=== PATIENT | female | born 1940 | race Caucasian/White ===

== ENCOUNTER 2021-11-20 10:00 | Outpatient (RCR) | payer MEDICARE, MEDICAID, SELFPAY | END 2021-12-16 10:49 | disposition home or self-care (01) | LOC: HO.PT 10:00 | PROVIDERS: Visit Provider Internal Medicine | DX: M25.561 Pain in right knee (principal) | CPT/HCPCS: 97110; 97163 ==

== ENCOUNTER 2022-04-16 10:56 | Outpatient (REF) | payer MEDICARE, MEDICAID, SELFPAY ==
[2022-04-16 11:23] LABS: MANUAL DIFF FLAG NO
[2022-04-16 11:42] LABS: Basophils Percent Auto 0.5 % (0-2); Eosinophils Absolute Auto 0.2 X10*3/uL (0.0-0.4); Eosinophils Percent Auto 3.1 % (0-4); Hematocrit 41.2 % (37.0-47.0); Hemoglobin 13.5 g/dl (12.0-16.0); Imm Gran Abs Auto 0.01 X10*3/uL (0.00-0.03); Imm Gran Pct Auto 0.2 % (0.0-0.4); Lymphocytes Absolute Auto 1.7 X10*3/uL (1.2-4.9); Lymphocytes Percent Auto 26.9 % (20-40); Mean Corpuscular HGB Conc 32.8 g/dl (31.0-35.0); Mean Corpuscular Hemoglobin 28.6 pg (27.0-33.0); Mean Corpuscular Volume 87.3 fL (80.0-98.0); Mean Platelet Volume 9.1 fL (9.4-12.3); Monocytes Absolute Auto 0.6 X10*3/uL (0.1-1.2); Monocytes Percent Auto 9.7 % (2-11); Neutrophils Absolute Auto 3.8 x10*3/uL (2.0-8.3); Neutrophils Percent Auto 59.6 % (45-73); Platelet Count 276 X10*3/uL (160-400); Red Blood Count 4.72 X10*6/uL (4.20-5.50); Red Cell Distribution Width 15.8 % (11.0-16.0); White Blood Count 6.4 X10*3/uL (4.8-10.8)
[2022-04-16 12:21] LABS: Alanine Aminotransferase 29 U/L (0-31); Albumin Level 4.2 g/dL (3.5-5.0); Alkaline Phosphatase 71 U/L (39-117); Aspartate Amino Transferase 28 U/L (5-31); Bilirubin Direct < 0.2 mg/dL (0.0-0.5); Bilirubin Total 0.3 mg/dL (0.0-1.0); Lipase 15 U/L (8-78); Total Protein 7.6 g/dL (6.5-8.0)
[2022-04-16 12:25] LABS: Amylase 52 U/L (28-100)
== END 2022-04-16 10:57 | disposition home or self-care (01) ==
LOC: HO.LAB 10:56
PROVIDERS: PCP Internal Medicine; Visit Provider Internal Medicine
DX: R10.84 Generalized abdominal pain (principal)
CPT/HCPCS: 36415; 80076; 82150; 83690; 85025

== ENCOUNTER 2022-05-01 09:02 | Outpatient (REF) | payer MEDICARE, MEDICAID, SELFPAY ==
--- NOTE | ~2022-05-01 | US_ITS ---
EXAMINATION: US ABDOMEN COMPLETE CLINICAL INFORMATION: Abdominal pain, acute, generalized. COMPARISON: None TECHNIQUE: Real-time imaging of the abdominal viscera. FINDINGS: PANCREAS: The head and body are normal. The tail is not well visualized due to bowel gas. ABDOMINAL AORTA: The proximal, mid, and distal segments are normal in caliber. INFERIOR VENA CAVA: Visualized portions are normal. LIVER: The liver is normal in size. The liver contour is normal. Liver echotexture is present. No focal hepatic lesion. There is no intrahepatic biliary duct dilatation seen. GALLBLADDER: Normal. The gallbladder is physiologically distended without evidence of stones, sludge, polyps, wall thickening or pericholecystic fluid. COMMON BILE DUCT: Normal in caliber measuring 0.3 cm in diameter. RIGHT KIDNEY: There is a 3 mm stone in the lower pole. No hydronephrosis or focal parenchymal lesions. The kidney measures 11.5 cm in maximum dimension. LEFT KIDNEY: Normal. No hydronephrosis. No renal calculi or focal parenchymal lesions. The kidney measures 10.9 cm in maximum dimension. SPLEEN: Normal. The spleen measures 8.5 cm in maximum dimension. FREE FLUID: None. US/US abdomen complete IMPRESSION: Echogenic liver probably representing fatty infiltration. Small right renal stone. Limited visualization of the tail of the pancreas.
== END 2022-05-01 09:03 | disposition home or self-care (01) ==
LOC: HO.US 09:02
PROVIDERS: Visit Provider Internal Medicine
DX: R10.84 Generalized abdominal pain (principal)
CPT/HCPCS: 76700

== ENCOUNTER 2022-06-24 13:51 | Outpatient (REF) | payer MEDICARE, MEDICAID, SELFPAY ==
--- NOTE | ~2022-06-24 | US_ITS ---
EXAMINATION: US VENOUS ULTRASOUND WITH DOPPLER LOWER EXTREMITY, BILATERAL CLINICAL INFORMATION: Lower extremity edema and varicose veins. Question DVT COMPARISON: None TECHNIQUE: Ultrasound of the deep veins is performed from the hip to the calf with compression sonography and color and pulse Doppler assessment. Spectral analysis with color-flow imaging is performed. FINDINGS: RIGHT: There is normal venous compression and respiratory variation and augmented flow. The visualized common femoral vein, superficial femoral vein, profunda femoral vein, popliteal vein, and the trifurcation region shows no evidence of deep venous thrombosis. There is no significant popliteal fossa cyst. LEFT: There is normal venous compression and respiratory variation and augmented flow. The visualized common femoral vein, superficial femoral vein, profunda femoral vein, popliteal vein, and the trifurcation region shows no evidence of deep venous thrombosis. Small ovoid shaped anechoic fluid collection consistent with Sage's cyst measuring 3.6 x 0.9 x 1.1 cm in size. If the patient's symptoms persist, followup ultrasound in 5 days 7 days might be of value to exclude proximal propagation from a non-visualized calf vein. US/US venous duplex LE BI IMPRESSION: No DVT demonstrated in the bilateral lower extremities. Incidental small left-sided Sage's cyst.
== END 2022-06-24 13:52 | disposition home or self-care (01) ==
LOC: HO.US 13:51
PROVIDERS: PCP Internal Medicine; Visit Provider Emergency Medicine
DX: I83.893 Varicose veins of bilateral lower extremities with other complications (principal)
CPT/HCPCS: 93970

== ENCOUNTER 2024-02-10 12:24 | Outpatient (REF) | payer MEDICARE, MEDICAID, SELFPAY ==
[2024-02-10 14:24] LABS: Alanine Aminotransferase 23 U/L (0-31); Albumin Level 4.2 g/dL (3.5-5.0); Alkaline Phosphatase 64 U/L (39-117); Anion Gap 18 (12-20); Aspartate Amino Transferase 21 U/L (5-31); Bilirubin Total 0.2 mg/dL (0.0-1.0); Blood Urea Nitrogen 17 mg/dL (9-16); Calcium 10.4 mg/dL (8.4-10.2); Carbon Dioxide 23 mmol/L (22-29); Chloride 103 mmol/L (96-108); Estimated Glomerular Filt Rate > 60; Glucose Random 258 mg/dL (60-115); Potassium 3.6 mmol/L (3.3-5.1); Sodium 140 mmol/L (135-145); Total Protein 7.7 g/dL (6.5-8.0)
== END 2024-02-10 12:25 | disposition home or self-care (01) ==
LOC: HO.CHCLDS 12:24
PROVIDERS: Visit Provider Internal Medicine
DX: E11.9 Type 2 diabetes mellitus without complications (principal); Z79.4 Long term (current) use of insulin
CPT/HCPCS: 36415; 80053